=== PATIENT | female | born 1975 | race Caucasian/White ===

== ENCOUNTER 2020-03-23 16:22 | Outpatient (REF) | payer BC, SELFPAY ==
--- NOTE | 2020-03-23 | MM_ITS ---
EXAMINATION: MM SCREENING DIGITAL BREAST TOMOSYNTHESIS, BILATERAL CLINICAL INFORMATION: Screening. Asymptomatic. The lifetime risk of breast cancer based on the Tyrer-Cuzick Model is 12%. COMPARISON: Mammography: 08/03/2018, 07/17/2017 TECHNIQUE: Digital breast tomosynthesis is performed in both the craniocaudal and mediolateral oblique views along with computer-aided detection (CAD). Synthesized 2D images are generated from the tomosynthesis. Additional right MLO view is provided. FINDINGS: The breasts are heterogeneously dense, which may obscure small masses (ACR BI-RADS breast composition Category c). There are no significant masses, abnormal calcifications, or other abnormalities. The axilla and skin contours are unremarkable. IMPRESSION: No mammographic evidence of malignancy. ASSESSMENT: BI-RADS 1: Negative RECOMMENDATION: Routine annual mammography screening. This patient's information was entered into a reminder system with a target due date for their next mammogram.
== END 2020-03-23 16:23 | disposition home or self-care (01) ==
LOC: HO.MAMMO 16:22
PROVIDERS: PCP Internal Medicine; Visit Provider Internal Medicine
DX: Z12.31 Encounter for screening mammogram for malignant neoplasm of breast (principal)
CPT/HCPCS: 77063; 77067

== ENCOUNTER 2020-04-04 12:10 | Outpatient (REF) | payer BC, SELFPAY ==
[2020-04-04 12:53] LABS: MANUAL DIFF FLAG NO
[2020-04-04 13:02] LABS: Basophils Percent Auto 0.5 % (0-2); Eosinophils Absolute Auto 0.2 X10*3/uL (0.0-0.4); Eosinophils Percent Auto 4.1 % (0-4); Hematocrit 40.5 % (37-47); Hemoglobin 13.5 g/dl (12.0-16.0); Lymphocytes Absolute Auto 1.5 X10*3/uL (1.2-4.9); Lymphocytes Percent Auto 38.5 % (20-40); Mean Corpuscular HGB Conc 33.3 g/dl (31.0-35.0); Mean Corpuscular Hemoglobin 32.8 pg (27.0-33.0); Mean Corpuscular Volume 98.5 fL (80-98); Monocytes Absolute Auto 0.3 X10*3/uL (0.1-1.2); Monocytes Percent Auto 6.7 % (2-11); Neutrophils Percent Auto 50.2 % (45-73); Platelet Count 211 X10*3/uL (160-400); Red Blood Count 4.11 X10*6/uL (4.20-5.50); Red Cell Distribution Width 11.3 % (11.0-16.0); White Blood Count 3.9 X10*3/uL (4.8-10.8)
[2020-04-04 13:20] LABS: Glucose Urine UA NEG (NEG); Leukocyte Esterase Urine TRACE (NEG); Nitrite Urine NEG (NEG); Specific Gravity - Urine 1.025 (1.005-1.025); Urine Blood NEG (NEG); Urine Ketones 5 MG/DL (NEG); Urine Protein NEG (NEG-TRACE)
[2020-04-04 13:22] LABS: Alanine Aminotransferase 28 U/L (0-31); Albumin Level 4.6 g/dL (3.5-5.0); Alkaline Phosphatase 41 U/L (39-117); Anion Gap 13 (12-20); Appearance Urine CLEAR; Aspartate Amino Transferase 23 U/L (5-31); Bilirubin Total 0.7 mg/dL (0.0-1.0); Blood Urea Nitrogen 14 mg/dL (9-16); Calcium 9.1 mg/dL (8.4-10.2); Carbon Dioxide 25 mmol/L (22-29); Chloride 103 mmol/L (96-108); Cholesterol 240 mg/dL; Color Urine YELLOW; Estimated Glomerular Filt Rate > 60; Glucose Fasting 95 mg/dL (60-99); HDL Cholesterol 67 mg/dL; LDL Cholesterol Calculated 155 mg/dl; Potassium 4.5 mmol/l (3.3-5.1); Sodium 136 mmol/L (135-145); Triglycerides 90 mg/dL
[2020-04-04 13:33] LABS: RBC Urine 0-2 /HPF (0); Squamous Epithelial Cell Urine 4+ /LPF; WBC Urine 0-2 /HPF (0-4)
== END 2020-04-04 12:11 | disposition home or self-care (01) ==
LOC: HO.MANLDS 12:10
PROVIDERS: PCP Physician Assistant; Visit Provider Physician Assistant
DX: Z00.00 Encounter for general adult medical examination without abnormal findings (principal); Z13.6 Encounter for screening for cardiovascular disorders
CPT/HCPCS: 36415; 80053; 80061; 81001; 81003; 85025; 87086; 87147

== ENCOUNTER 2024-07-29 13:32 | Emergency (ER) | payer BC, SELFPAY ==
--- NOTE | ~2024-07-29 | XR_ITS ---
EXAMINATION: XR SHOULDER, RIGHT CLINICAL INFORMATION: trauma COMPARISON: None available. TECHNIQUE: AP external rotation, Grashey, scapular Y, and axillary views of the right shoulder. FINDINGS: Normal bone mineralization. No fracture, dislocation, or suspicious bone lesion. Normal alignment. The glenohumeral joint is normal. The AC joint is normal. There is a neutral lateral acromion. No undersurface spurring. The subacromial space is preserved. Remainder of the soft tissue and bony structures appear normal. XR/XR shoulder RT min 2V IMPRESSION: Normal right shoulder. Electronically signed by: Car Nagel MD 07/29/2024 02:19 PM [facility] [place]
[2024-07-29 13:54] VITALS: BP 139/86; PULSE 70; RESP 18; TEMP 36.3; O2SAT 98; BMI 23.0
--- NOTE | 2024-07-29 13:55 | ED.GENADULT ---
HPI - General Adult General Chief complaint: Fall Stated complaint: R shoulder injury - fell on ice Time Seen by Provider: 07/29/24 15:11 Source: patient Limitations: no limitations History of Present Illness ED Provider: Brandy Gregory PA-C HPI narrative: 48-year-old female presents after fall. Patient states she fell on the ice, landing on her right side. She now complains of right shoulder pain. There was no head strike, no loss consciousness. Related Data Allergies Allergy/AdvReac Type Severity Reaction Status Date / Time No Known Allergies Allergy Verified 07/29/24 13:56 Review of Systems Review of Systems: Yes all other systems are reviewed and are negative Constitutional: Constitutional: Denies fatigue and Denies fever(s) Musculoskeletal: Musculoskeletal: Reports arthralgias and Denies joint swelling Endocrine: Endocrine: Denies fatigue PMFSH Past Medical History Attestation statement: The following information was validated with the patient. Physical Exam ED Vital Signs: Vital Signs - 24 hr 07/29/24 13:54 07/29/24 15:18 Temperature 97.4 F 97.8 F Pulse Rate 70 63 Respiratory Rate 18 20 Blood Pressure 139/86 131/73 Pulse Oximetry 98 Oxygen Delivery Method Room Air BMI result Body Mass Index 23.0 Const Other: Alert Orientation/consciousness: patient oriented x3 Resp Effort & Inspection: normal respiratory effort Cardio Other: Normal peripheral perfusion Skin Other: Warm dry no rash Neuro General: patient oriented x3, gait normal, no focal motor deficits and CN's II-XI intact bilaterally Extrem Other: Patient able to fully flex and extend from the elbow, limited range of motion of the right shoulder and lateral raise secondary to pain, no deformity Psych Other: Cooperative Course Course Course Narrative: This is a rapid medical exam performed by Brandy Gregory PA-C. The patient is a 48-year-old female who presents with right shoulder pain after a fall. Patient states she slipped and fell on the ice. She can flex and extend from the elbow, she can not perform lateral raise at the point of the shoulder. We will obtain an x-ray. The patient is stable and can return to the waiting room pending her full medical assessment. Medical Decision Making Medical Decision Making MDM Narrative: 48-year-old female presents after fall. Patient states she fell on the ice, landing on her right side. She now complains of right shoulder pain. There was no head strike, no loss consciousness. No chronic issues History: Per patient I have considered the following differential diagnoses: Fracture, dislocation, contusion, sprain Plan: X-ray obtained from triage it was negative. We will send the patient with home care instructions. I have independently reviewed the following tests: X-ray right shoulder: XR/XR shoulder RT min 2V IMPRESSION: Normal right shoulder. Electronically signed by: Car Nagel MD 07/29/2024 02:19 PM [facility] [place] Discharge Plan Discharge Clinical Impression: Contusion of shoulder, right Patient Disposition: Home, Self-Care Instructions: Contusion in Adults (ED), R.I.C.E. Treatment (ED) Additional Instructions: The x-ray was normal, there was no fracture or dislocation. You have a contusion. See home care instructions. You can use mtpy-zum-nhyypos ibuprofen 600 mg taken every 6 hours with food. You can ice the area periodically throughout the day, for 15 minutes each time. Follow up with your primary care provider as needed. Print Language: Solomon Islander
[2024-07-29 15:18] VITALS: BP 131/73; PULSE 63; RESP 20; TEMP 36.6
[2024-07-29 15:20] VITALS: BP 131/73; PULSE 63; RESP 20; TEMP 36.6
--- OUTSIDE RECORDS SUMMARY | 2024-07-29 15:25 | XMS_ITS | Data Portability ---
Author Organization [facility] Address [address] [place] [address] Assessment No assessment recorded. Plan of Treatment Reminders Order Date Submit Date Provider Last Modified By Organization Details Last Modified Time Details Appointments None recorded. Lab lipid panel, blood 2019 LUIS M Not available 0 00:14:24 CBC w/ auto diff 2019 LUIS M Not available 0 00:14:24 CMP, serum or plasma 2019 LUIS M Not available 0 00:14:24 urinalysis , complete 2019 LUIS M Not available 0 00:14:24 culture, urine + sensitivit y 2019 LUIS M Not available 0 14:46:13 Referral None recorded. Procedures None recorded. Surgeries None recorded. Imaging CT, pelvis, w/wo contrast 2017 018 [facility] (Imaging), [address] [place] [address], [id number], 8 15:51:00 Medication Orders Clobex 0.05 % lotion 2017 018 [id number], [address], [place], [phone], 8 14:29:59 Patient TargetsNo targets recorded. Patient Instructions Encounter Date Encounter Id Patient Instructions Last Modified By Organization Details Last Modified Time 01/06/2018 [id number] Hormone therapy can precipitate cysts PAP 07/24/17 (-) HPV 12/2016 [email or web address] Not available 01/06/2018 14:33:24 Reason for Referral None Reported. Results Created Date Observation Date Name Description Value Unit Range Abnormal Flag Note LastModifiedBy Organization Detail LastModifiedTime 03/19/20 18 03/12/2018 CT, pelvi s, w/wo contr ast No observ ation record ed. [facility] (Imaging) [address] [place] [address], [place], [address], 03/22/2018 08:56:15 08/04/19 19 08/03/2018 MAMMO , scree pop, bilat eral No observ ation record ed. [facility] [address] [place] [address], [place], [address], 08/04/2018 15:44:03 03/26/2003/23/2020 MAMMO , diagn ostic , digit al, bilat eral No observ ation record ed. [email or web address] [facility] [address] [facility], [address], 03/26/2020 10:49:45 Result Notes None recorded. Problems Name Problem SNOMED Code Status Onset Date Resolution Date Notes Provider Name and Address Organization Details Recorded Time Anxiety 39419457 [facility] 08:31:48 Psoriasis 0405897 Active 2017 Kourtney Javier NP, S [address] [place] [address], [phone], [facility] 8 14:29:14 Cyst of left ovary 335948691308 91530 Active 2017 Kourtney Javier NP, S [address] [place] [address], [phone], [facility] 8 14:33:39 Problem Notes None recorded. Procedures Surgical History Date Name Laterality Status Provider Name and Address Organization Details Recorded Time 05/08/20 18 partial oophorectomy completed Kourtney Javier NP, S [address] [place], [address], [facility] 06/21/2018 07:42:23 Imaging Results Imaging Date Name Status LastModified by Organiz ation Details LastModified Time 03/12/2018 CT, pelvis, w/wo contrast completed [facility] (Imaging) [address] [place] [address], [address], 03/22/2018 08:56:15 08/03/2018 MAMMO, screening, bilateral completed [address], [address], 08/04/2018 15:44:03 03/23/2020 MAMMO, diagnostic, digital, bilateral completed [email or web address] [facility] [address] [place] [address] [place], [address], 03/26/2020 10:49:45 Procedure Notes None recorded. Medical Equipment None Reported. Allergies No known drug allergies Medications Name Sig Start Date Stop Date Status Note LastModified by Organization Details LastModified Time clobetasol propionate (bulk) powder 04/03 completed Not Available Not Available Not Available Adderall 10 mg tablet Take 1 tablet every day by oral route. 04/03 completed Not Available Not Available Not Available clobetasol 0.05 % lotion active Not Available Not Available Not Available Clobex 0.05 % topical spray APPLY TO THE AFFECTED AREA(S) BY TOPICAL ROUTE 2 TIMES PER DAY ; RUB IN GENTLY AND COMPLETEL Y 04/03 completed Not Available Not Available Not Available Vitals Date Recorded Heart rate Oxygen saturation Oxygen saturation in Arterial blood by Pulse oximetry Systolic blood pressure Diastolic blood pressure Provider Name and Address Organization Details Last Updated DateTime 0 80 /min 99 % 99 % 140 mm[Hg] 90 mm[Hg] Cynthia Malone [facility] 0 13:52:24 Date Recorded Body weight Body mass index (BMI) Body height Heart rate Oxygen saturation Oxygen saturation in Arterial blood by Pulse oximetry Systolic blood pressure Diastolic blood pressure Provider Name and Address Organization Details Last Updated DateTime 0 57036.5 5 g 23 kg/m2 161.29 cm 76 /min 99 % 99 % 114 mm[Hg] 76 mm[Hg] EL ALVAREZ [address] [place], [address], [facility] 0 14:06:40 Date Recorded Body height Body mass index (BMI) Body weight Heart rate Oxygen saturation Oxygen saturation in Arterial blood by Pulse oximetry Systolic blood pressure Diastolic blood pressure Provider Name and Address Organization Details Last Updated DateTime 8 161.29 cm 22.7 kg/m2 26856.0 1 g 72 /min 96 % 96 % 120 mm[Hg] 74 mm[Hg] Cynthia Kira [facility] 8 14:09:49 Social History None recorded. Functional Status None recorded. Mental Status None recorded. Family History Nothing Reported. Medical History No medical history recorded. Gynecological HistoryNo gynecological history recorded. Obstetrics History GPAL:G 0 P 0 0 0 0 Past Encounters Encounter ID Performer Location Encounter Start Date Encounter Closed Date Diagnosis/Indication Diagnosis SNOMED-CT Code Diagnosis ICD10 Code Diagnosis Note [id number] Kourtney Javier NP, S [facility] [address] [place] [phone] 01/06/2018 14:01:50 01/06/2018 15:24:37 Complex cyst of left ovary 4765677158 7994171 N83.292 Psoriasis 0492618 L40.9 Anxiety 25977079 F41.9 chronic [id number] EL ALVAREZ [facility] [address] [place] [address] 02/08/2020 13:47:59 02/08/2020 14:16:29 Anxiety 66851011 F41.9 stable per patient Psoriasis 3645210 L40.9 stable per patient [id number] EL ALVAREZ [facility] [address] [place] [address] [place] [address] 04/03/2020 14:00:27 04/03/2020 15:17:36 Active or passive immunization 955795651 Z23 will get flu shot from [facility] Adult heal th examination 305204133 Z00.00 BP excellent today doing well Screening for cardiovascular system disease 592850989 Z13.6 needs BW and urinalysis for paperwork Health Concerns Section Related Observation LastModified by Organization Detai ls LastModified Time None Recorded Concern Status LastModified by Organization Details LastModified Time None Recorded Advance Directives Directive None Recorded Payers Encounter Date Sequence Insurance Name Policy Number Policy [place] Covered Member ID [place] Member ID Guarantor Name 01/06/2018 1 [place] PRIOR TO 2022 - [facility] (MEDICAID) Nevin Sanabriaier [id number] Nevin Ricks Ragland 02/08/2020 1 [place] [id number] Antoine Ferguson [id number] Nevin Ricks Ragland 04/03/2020 1 [place] [id number] Antoine Nicoleg [id number] Nevin Ricks Ragland Notes Date Note Type Note Provider Name a tx Address Organization Details Recorded Time 8 text/html November of this year, appt with reproductive MD was told ? a tumor on left ovary Has had cysts in past, last 02/2017 with f/u complete resolution left ovarian cyst Was on hormone therapy month of October, U/S done in [place] in November Did have 3 eggs retrieved for storage, not ready to have children No change bowel or bladder. No weight loss No abd. pain Kourtney Javier NP, S [address] [place], [address], [facility] 01/06/2018 14:33:52 0 text/html c/o paperwork patient brought in paperwork for adoption certifying she is healthy the patient needs to have physical to fill it out discussed this with patient that this paperwork cannot be filled out today because she needs to have a physical patient understands was scheduled for a physical no fever, no chest pain, no sob, no cough, no abdominal pain EL ALVAREZ [address] [place], [address], [facility] 02/08/2020 14:16:28 0 text/html Annual WellnessReported bypatient.Diet and Nutrition:discussed vitamin and supplement use; discussed portion control; discussed maintaining calcium balance; discussed diet improvement Fracture Risk:no history of fractures; no recent explained fracture; no sudden unexplained fractures; no previous musculoskeletal injuries Physical Activity:exercises on a regular basis; discussed weightbearing activities; discussed exercise habits; does yoga Additional Lifestyle Factors:no tobacco use; drinks alcohol (mild-moderate) (2 glasses of wine every other day) Depression Risk:never feels sad, empty, or tearful; no loss of interest in activities; no significant changes in weight; no sleep disturbances or insomnia; no agitation; no loss of energy; no feelings of worthlessness or guilt; no thoughts of suicide; no history of depression;history of mood disorders; anxiety, stable Hearing:no loss of hearing Vision:no vision problems EL ALVAREZ [address] [place] [address], [phone], [facility] 04/03/2020 14:31:25 OBGyn Episode No OBEpisode recorded.
== END 2024-07-29 15:25 | disposition home or self-care (01) ==
PROVIDERS: Emergency Provider Emergency Medicine
DX: S40.011A Contusion of right shoulder, initial encounter (principal); M25.511 Pain in right shoulder; W00.0XXA Fall on same level due to ice and snow, initial encounter; Y93.89 Activity, other specified; Y92.89 Other specified places as the place of occurrence of the external cause; Y99.8 Other external cause status
CPT/HCPCS: 73030; 99282; 99283

== ENCOUNTER → 2024-07-29 13:56 | Outpatient (BNV) | payer BC, SELFPAY | PROVIDERS: Visit Provider Radiology Diagnostic Radiology | DX: S49.91XA Unspecified injury of right shoulder and upper arm, initial encounter (principal); W19.XXXA Unspecified fall, initial encounter | CPT/HCPCS: 73030 ==